=== PATIENT | male | born 1985 | race Caucasian/White ===

== ENCOUNTER 2017-05-17 18:31 | Emergency (ER) | payer OTHER ==
[~2017-05-17] VITALS: Ht 182.9 cm; Wt 77.0 kg
[2017-05-17 18:32] VITALS: BP 160/93; PULSE 93; RESP 18; TEMP 98.6; O2SAT 100
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
[2017-05-17] MEDS ORDERED: IBUPROFEN 800 MG TAB PO ONE (19:15)
[2017-05-17] MEDS ORDERED: ROBA500T PO (19:16)
[2017-05-17] MEDS ORDERED: IBUP1TAB7 PO (19:16)
== END 2017-05-17 19:28 | disposition home or self-care (01) ==
LOC: NEPK 18:31
DX: R51 Headache (principal); F17.200 Nicotine dependence, unspecified, uncomplicated; V89.2XXA Person injured in unspecified motor-vehicle accident, traffic, initial encounter
CPT/HCPCS: 99283